=== PATIENT | male | born 1950 | race Caucasian/White ===

== ENCOUNTER 2016-06-22 14:28 | Observation (INO) | payer BC, MEDICARE ==
[~2016-06-22] VITALS: Ht 177.8 cm; Wt 128.8 kg
[~2016-06-22 14:28] MED LIST: ALBUTEROL2.5 MG/0.5 INH; AUGMENTIN 875-1 EACH PO; CELEXA40 MG PO; COUMADIN3 MG PO; COZAAR 25MG TAB25 MG PO; FUROSEMIDE40 MG PO; LANOXIN TAB 00.25 MG PO; LEVEMIR100 UNIT/1 SC; MEDROL DOSEPAK 24 MG PO; METOPROLOL TART25 MG PO; PRAVACHOL20 MG PO; PROTONIX40 MG PO; SPIRONOLACTONE25 MG PO
[2016-06-22] MEDS ORDERED: SYMBICORT 160-1 INHA INH (15:32)
[2016-06-22 15:51] LABS: HEMOGLOBIN 12.5 gm/dl (14.0-17.5); RED BLOOD COUNT 4.61 M/UL (4.20-5.50); WHITE BLOOD COUNT 22.1 K/UL (4.5-11.0)
[2016-06-23 05:44] LABS: HEMOGLOBIN 12.8 gm/dl (14.0-17.5); RED BLOOD COUNT 4.69 M/UL (4.20-5.50); WHITE BLOOD COUNT 17.1 K/UL (4.5-11.0)
[2016-06-24 06:05] LABS: HEMOGLOBIN 12.1 gm/dl (14.0-17.5); RED BLOOD COUNT 4.48 M/UL (4.20-5.50); WHITE BLOOD COUNT 16.9 K/UL (4.5-11.0)
[2016-06-24] MEDS ORDERED: AUGMENTIN TAB875 MG PO (14:35)
[2016-06-24] MEDS ORDERED: METFORMIN HCL500 MG PO (14:40)
[2016-06-24] MEDS ORDERED: AZITHROMYCIN250 MG PO (15:23)
[2016-06-24] MEDS ORDERED: GLUCOPHAGE XR500 MG PO (15:35)
[2017-01-29] MEDS ORDERED: ELIQUIS5 MG PO (10:36)
== END 2016-06-24 15:50 | disposition home or self-care (01) ==
LOC: MED SURG 4 14:28 → M/S 14:54
PROVIDERS: Family Medicine; ADMIT Family Medicine
DX: J96.20 Acute and chronic respiratory failure, unspecified whether with hypoxia or hypercapnia (principal); J44.1 Chronic obstructive pulmonary disease with (acute) exacerbation; I11.0 Hypertensive heart disease with heart failure; I50.9 Heart failure, unspecified; E11.9 Type 2 diabetes mellitus without complications; I48.91 Unspecified atrial fibrillation; E78.5 Hyperlipidemia, unspecified; Z86.73 Personal history of transient ischemic attack (TIA), and cerebral infarction without residual deficits; Z87.891 Personal history of nicotine dependence; Z80.1 Family history of malignant neoplasm of trachea, bronchus and lung; Z88.8 Allergy status to other drugs, medicaments and biological substances; Z79.01 Long term (current) use of anticoagulants; Z79.899 Other long term (current) drug therapy; Z98.890 Other specified postprocedural states
CPT/HCPCS: 36415; 71020; 80048; 80053; 82962; 85027; 85610; 93005; 94640; 94664; 96365; 96375; 96376; G0378; G0379; J0696; J2920

== ENCOUNTER 2016-07-02 10:54 | Inpatient (IN) | payer BC, MEDICARE ==
[~2016-07-02] VITALS: Ht 177.8 cm; Wt 119.7 kg
[~2016-07-02 10:54] MED LIST changes: +AUGMENTIN TAB875 MG PO; +AZITHROMYCIN250 MG PO; +GLUCOPHAGE XR500 MG PO; +METFORMIN HCL500 MG PO; +SYMBICORT 160-1 INHA INH
[2016-07-02 11:16] LABS: HEMOGLOBIN 14.5 gm/dl (14.0-17.5); RED BLOOD COUNT 5.32 M/UL (4.20-5.50); WHITE BLOOD COUNT 13.4 K/UL (4.5-11.0)
[2016-07-02 11:39] LABS: BUN/CREATININE RATIO 19 (0-10)
[2016-07-03 04:47] LABS: HEMOGLOBIN 13.2 gm/dl (14.0-17.5); RED BLOOD COUNT 4.91 M/UL (4.20-5.50); WHITE BLOOD COUNT 14.5 K/UL (4.5-11.0)
[2016-07-03 06:24] LABS: BUN/CREATININE RATIO 17 (0-10)
[2016-07-04 04:18] LABS: HEMOGLOBIN 13.1 gm/dl (14.0-17.5); RED BLOOD COUNT 4.8 M/UL (4.20-5.50); WHITE BLOOD COUNT 12.5 K/UL (4.5-11.0)
[2016-07-05 05:41] LABS: RED BLOOD COUNT 4.82 M/UL (4.20-5.50)
[2016-07-05 06:20] LABS: BUN/CREATININE RATIO 20 (0-10)
[2016-07-05] MEDS ORDERED: ALDACTONE 25MG25 MG PO (11:36)
[2016-07-05] MEDS ORDERED: XARELTO20 MG PO (11:42)
[2017-01-29] MEDS ORDERED: ELIQUIS5 MG PO (10:36)
== END 2016-07-05 13:37 | disposition home health service (06) | DRG 65 ==
LOC: ER1 10:54 → ZEROF 13:17 → PROG CARE 13:17
PROVIDERS: Emergency Medicine; ADMIT Family Medicine
DX: I63.9 Cerebral infarction, unspecified (principal); I13.0 Hypertensive heart and chronic kidney disease with heart failure and stage 1 through stage 4 chronic kidney disease, or unspecified chronic kidney disease; I50.22 Chronic systolic (congestive) heart failure; I47.2 Ventricular tachycardia; H49.12 Fourth [trochlear] nerve palsy, left eye; R47.1 Dysarthria and anarthria; R29.701 NIHSS score 1; N18.3 Chronic kidney disease, stage 3 (moderate); I48.2 Chronic atrial fibrillation; I25.5 Ischemic cardiomyopathy; I25.10 Atherosclerotic heart disease of native coronary artery without angina pectoris; I49.5 Sick sinus syndrome; E11.9 Type 2 diabetes mellitus without complications; J44.9 Chronic obstructive pulmonary disease, unspecified; I44.7 Left bundle-branch block, unspecified; E78.5 Hyperlipidemia, unspecified; I27.2 Other secondary pulmonary hypertension; R20.0 Anesthesia of skin; I07.1 Rheumatic tricuspid insufficiency; K21.9 Gastro-esophageal reflux disease without esophagitis; K22.70 Barrett's esophagus without dysplasia; D72.829 Elevated white blood cell count, unspecified; R74.8 Abnormal levels of other serum enzymes; I25.2 Old myocardial infarction; Z95.810 Presence of automatic (implantable) cardiac defibrillator; Z87.891 Personal history of nicotine dependence; Z86.73 Personal history of transient ischemic attack (TIA), and cerebral infarction without residual deficits; Z79.01 Long term (current) use of anticoagulants; Z79.84 Long term (current) use of oral hypoglycemic drugs; Z79.4 Long term (current) use of insulin; Z79.51 Long term (current) use of inhaled steroids; Z79.899 Other long term (current) drug therapy; Z88.6 Allergy status to analgesic agent; Z88.8 Allergy status to other drugs, medicaments and biological substances; Z80.1 Family history of malignant neoplasm of trachea, bronchus and lung; Z82.49 Family history of ischemic heart disease and other diseases of the circulatory system
CPT/HCPCS: ECHO; 36415; 70450; 71010; 80053; 81001; 82550; 82553; 82962; 83690; 83874; 84439; 84443; 84484; 85025; 85027; 85610; 85730; 92610; 93005; 93306; 93880; 94640; 94664; 97535; 99285; J1650; J1815; J1817

== ENCOUNTER → 2016-09-25 | Outpatient (CLI) | payer BC, MEDICARE ==
[~2016-09-25] MED LIST changes: +ALDACTONE 25MG25 MG PO; +CORDARONE 200M200 MG PO; +ELIQUIS5 MG PO; +XARELTO20 MG PO
== END ==
LOC: HEART 5 07:19
DX: I20.9 Angina pectoris, unspecified (principal)
CPT/HCPCS: 78452; A9502; J2785

== ENCOUNTER → 2016-09-27 | Outpatient (CLI) | payer BC, MEDICARE ==
[~2016-09-27] MED LIST changes: -CORDARONE 200M200 MG PO
== END ==
LOC: US 15:00
DX: I73.9 Peripheral vascular disease, unspecified (principal)
CPT/HCPCS: 93925